=== PATIENT | male | born 1960 | race Caucasian/White ===

== ENCOUNTER 2017-10-15 19:35 | Emergency (ER) | payer SELFPAY ==
[~2017-10-15] VITALS: Ht 167.6 cm; Wt 116.6 kg
[2017-10-15 20:23] LABS: ABSOLUTE EOSINOPHILS 0.1 thou/uL (0.0-0.7); ABSOLUTE LYMPHOCYTES 1.6 thou/uL (0.8-5.3); ABSOLUTE MONOCYTES 0.4 thou/uL (0.0-1.2); ABSOLUTE NEUTROPHILS 3.2 thou/uL (1.6-8.1); BASOPHILS 0.8 %; EOSINOPHILS 1.4 %; LYMPHOCYTES 29.1 %; MCH 28.9 pg (26.0-34.0); MCHC 33.3 g/dL (28.0-37.0); MCV 86.8 fL (80.0-100.0); MONOCYTES 8.2 %; MPV 8.6 fl. (7.2-11.1); NUCLEATED RBCS 0 /100WBC; PLATELET COUNT* 169 thou/uL (150-400); POLYS 60.5 %; RBC 4.49 mil/uL (4.50-6.00); RDW-CV 16.8 % (10.5-14.5); WBC 5.4 thou/uL (4.0-11.0)
[2017-10-15 20:35] LABS: ANION GAP 8 mmol/L (7-16); BUN 5 mg/dL (7-18); CHLORIDE 100 mmol/L (98-107); CO2 26 mmol/L (21-32); CREATININE 0.5 mg/dL (0.6-1.3); GLUCOSE 170 mg/dL (70-99); POTASSIUM 3.7 mmol/L (3.5-5.1); SODIUM 134 mmol/L (136-145)
[2017-10-15 20:38] LABS: INR 1.2; PROTIME 11.4 Seconds (9.20-11.50)
[2017-10-15 20:46] LABS: ALBUMIN 2.8 g/dL (3.4-5.0); ALKALINE PHOSPHATASE 167 U/L (46-116); LIPASE 143 U/L (73-393); NT-PRO BRAIN NAT PEPTIDE 125 pg/mL (<300); SGOT 31 U/L (15-37); SGPT 23 U/L (30-65); TOTAL BILIRUBIN 0.3 mg/dL (<0.1-1.0); TOTAL PROTEIN 7.7 g/dL (6.4-8.2); TROPONIN-I LEVEL <0.06 ng/mL (<0.06)
[2017-10-15 21:30] LABS: URINE BILIRUBIN NEGATIVE (Negative); URINE BLOOD NEGATIVE (Negative); URINE CLARITY CLEAR; URINE COLOR YELLOW; URINE GLUCOSE-RANDOM NEGATIVE (Negative); URINE KETONES NEGATIVE (Negative); URINE LEUKOCYTES-REFLEX NEGATIVE (Negative); URINE NITRITE-REFLEX NEGATIVE (Negative); URINE PROTEIN NEGATIVE (Negative); URINE SPECIFIC GRAVITY <= 1.005 (1.005-1.030); URINE UROBILINOGEN 0.2 E.U./dl (0.2-1.0)
[2017-10-15 22:38] VITALS: BP 155/86
--- NOTE | 2017-10-16 10:49 | EKG ---
[place] [address] ELECTROCARDIOGRAM REPORT Name: JOURDAN LIANG [facility]#: [id number] Admission: 10/15/17 Attend Phys: Discharge: 10/15/17 Date of : 56 Report #: [id number] THIS REPORT FOR: //name// [facility] ED Test Date: 2017-10-15 Test Time: 19:40:04 Pat Name: JOURDAN LIANG Department: Room: Gender: M Director Hris: VANDANA : 1960 Requested By: Mali Corbett Order Number: [id number] MD: Jourdan Schneider Measurements Intervals Verdi Rate: 104 P: 73 DC: 168 QRS: 11 QRSD: 101 T: 43 QT: 353 QTc: 465 Interpretive Statements Sinus tachycardia poor r wave progression Atrial premature complex Low voltage, precordial leads No previous ECG available for comparison Electronically Signed On 10-16-2017 10:48:54 CDT by Jourdan Schneider [email or web address] <ELECTRONICALLY SIGNED> By: Jourdan Schneider MD, [facility] 10/16/17 1048 1940 39 Jourdan Schneider MD, FACC /EPI
== END 2017-10-15 22:38 | disposition home or self-care (01) ==
LOC: M.ERS 19:35
PROVIDERS: Emergency Medicine
DX: F10.129 Alcohol abuse with intoxication, unspecified (principal); Y90.8 Blood alcohol level of 240 mg/100 ml or more; Z95.5 Presence of coronary angioplasty implant and graft; Z87.891 Personal history of nicotine dependence